=== PATIENT | female | born 1990 | race Caucasian/White ===

== ENCOUNTER 2023-06-20 09:46 | Outpatient (CLI) | payer OTHER, SELFPAY | END 2023-06-20 09:47 | disposition home or self-care (01) | PROVIDERS: PCP Family Medicine; Visit Provider Family Medicine | DX: Z00.00 Encounter for general adult medical examination without abnormal findings (principal); E03.9 Hypothyroidism, unspecified | CPT/HCPCS: 84439; 84443 ==

== ENCOUNTER 2023-08-28 08:19 | Outpatient (CLI) | payer OTHER, SELFPAY | END 2023-08-28 08:20 | disposition home or self-care (01) | PROVIDERS: PCP Family Medicine; Visit Provider Family Medicine | DX: L65.9 Nonscarring hair loss, unspecified (principal) | CPT/HCPCS: 84439; 84443 ==

== ENCOUNTER 2023-12-18 08:15 | Outpatient (CLI) | payer OTHER, SELFPAY | END 2023-12-18 08:16 | disposition home or self-care (01) | LOC: NFLDREF 12-27 12:30 | PROVIDERS: PCP Family Medicine; Referring Provider Family Medicine; Visit Provider Family Medicine | DX: E03.9 Hypothyroidism, unspecified (principal); Z13.6 Encounter for screening for cardiovascular disorders | CPT/HCPCS: 80061; 84443 ==

== ENCOUNTER 2025-02-14 11:05 | Outpatient (CLI) | payer OTHER, SELFPAY | END 2025-02-14 11:06 | disposition home or self-care (01) | LOC: NFLDREF 02-17 09:23 | PROVIDERS: Absent Provider Family Medicine; PCP Family Medicine; Referring Provider Family Medicine; Visit Provider Family Medicine | DX: E03.9 Hypothyroidism, unspecified (principal) | CPT/HCPCS: 84439; 84443 ==

== ENCOUNTER 2025-06-02 08:52 | Outpatient (CLI) | payer OTHER, SELFPAY | END 2025-06-02 08:53 | disposition home or self-care (01) | PROVIDERS: PCP Family Medicine; Visit Provider Family Medicine | DX: R51.9 Headache, unspecified (principal); E03.9 Hypothyroidism, unspecified | CPT/HCPCS: 80048; 84443; 85025; 85651 ==